=== PATIENT | male | born 1935 | race Caucasian/White ===

== ENCOUNTER 2018-02-27 09:26 | Emergency (ER) | payer MEDICARE ==
[~2018-02-27] VITALS: Ht 177.8 cm; Wt 97.0 kg
[~2018-02-27 09:26] MED LIST: AMLODIPINE10 MG PO; ATENOLOL25 MG PO; ATIVAN0.5 MG PO; BABY ASPIRIN81 MG PO; BENAZEPRIL40 M1 OR; BENAZEPRIL40 M1 PO; BRILINTA90 MG PO; CALCIUM &MAG PO; CARVEDILOL6.25 MG PO; CIPRO500 MG PO; CIPROFLOXACN500 MG PO; CLONIDINE0.1 MG PO; COQ10200 MG PO; DIP/TET TOXOID0.5 ML IM; FLORASTOR250 M1 PO; HYDROCHLOROT25 MG PO; KETOROLAC TROME0.4 % OP; LATANOPROST0.005 % OP; LOVASTATIN10 M1 PO; LYRICA50 MG PO; NORCO1 TA1 PO; PRED FORTE1 % OP; PROAIR HFA IN; REQUIP0.5 MG PO; SAW PALMETTO450 MG PO; SIMVASTATIN40 MG PO; TRAMADOL HCL50 MG PO; TYLENOL # 31 TA1 PO; ZOSTAVAX SC
[2018-02-27] MEDS ORDERED: NAPROSYN500 MG PO (11:58)
[2018-02-27 12:11] VITALS: BP 188/88
== END 2018-02-27 12:38 | disposition home or self-care (01) ==
LOC: ED 09:26
PROC: 0SSGXZZ Reposition Left Ankle Joint, External Approach (ICD-10-PCS; principal; 2018-02-27)
PROC: 2W3RX1Z Immobilization of Left Lower Leg using Splint (ICD-10-PCS; 2018-02-27)
DX: S82.432A Displaced oblique fracture of shaft of left fibula, initial encounter for closed fracture (principal); W17.89XA Other fall from one level to another, initial encounter; Y93.H9 Activity, other involving exterior property and land maintenance, building and construction; Y92.008 Other place in unspecified non-institutional (private) residence as the place of occurrence of the external cause

== ENCOUNTER 2018-08-15 08:20 | Emergency (ER) | payer MEDICARE ==
[~2018-08-15] VITALS: Ht 177.8 cm; Wt 104.0 kg
[~2018-08-15 08:20] MED LIST changes: +NAPROSYN500 MG PO
[2018-08-15] MEDS ORDERED: CARVEDILOL25 MG PO (09:09)
[2018-08-15] MEDS ORDERED: FINASTERIDE5 MG PO (09:10)
[2018-08-15] MEDS ORDERED: MAXZIDE-2537.5 MG/TA PO (09:10)
[2018-08-15] MEDS ORDERED: ASPIRIN81 MG PO (09:11)
[2018-08-15] MEDS ORDERED: PAROXETINE10 MG PO (09:11)
[2018-08-15 09:16] LABS: HEMATOCRIT 46.7 % (39.0-50.0); HEMOGLOBIN 15.7 g/dl (14.0-18.0); IMMATURE GRANULOCYTES 0.3 % (0.0-5.0); MEAN CELL VOLUME 84.3 fL CALC (80.0-100.0); MEAN CORPUSCULAR HGB 28.3 pG CALC (26.0-32.0); MEAN CORPUSCULAR HGB CONC 33.6 g/L CALC (32.0-36.0); NEUT# 4.95 thou/uL (1.82-7.42); RED BLOOD COUNT 5.54 mill/uL (4.70-6.10); RED CELL DISTRI WIDTH 13.2 % (11.5-15.5)
[2018-08-15 10:21] LABS: ANION GAP 13 (6-22 (CALC)); BUN 14 mg/dL (8-23); BUN/CREATININE RATIO 19 (12-20 (CALC)); CARBON DIOXIDE 28 mmol/l (22-30); CHLORIDE 104 mmol/l (95-108); CREATININE 0.7 mg/dL (0.7-1.3); GFR > 60 ML/MIN (>=60 (CALC)); GFR FOR AFR.AMER. > 60 ML/MIN (>=60 (CALC)); POTASSIUM 3.7 mmol/l (3.5-5.1); SODIUM 141 mmol/l (137-146)
[2018-08-15] MEDS ORDERED: MECLIZINE25 MG PO (10:41)
[2018-08-15 10:52] VITALS: BP 173/85
== END 2018-08-15 11:02 | disposition home or self-care (01) ==
LOC: ED 08:20
PROVIDERS: Family Medicine
DX: R42 Dizziness and giddiness (principal); R51 Headache; I10 Essential (primary) hypertension

== ENCOUNTER 2024-01-09 12:39 | Emergency (ER) | payer MEDICARE ==
[~2024-01-09] VITALS: Ht 177.8 cm; Wt 100.8 kg
[~2024-01-09 12:39] MED LIST changes: +ASPIRIN81 MG PO; +CARVEDILOL25 MG PO; +FINASTERIDE5 MG PO; +MAXZIDE-2537.5 MG/TA PO; +MECLIZINE25 MG PO; +PAROXETINE10 MG PO
[2024-01-09 12:47] VITALS: BP 171/74
[2024-01-09 13:15] LABS: BASO% 0.4 % (0-3); EOS% 1.6 % (0-8); HEMATOCRIT 43.5 % (39.0-50.0); HEMOGLOBIN 14.8 g/dl (14.0-18.0); IMMATURE GRANULOCYTES 0.3 % (0.0-5.0); LYMPH% 17.3 % (15-41); MEAN CELL VOLUME 84.8 fL CALC (80.0-100.0); MEAN CORPUSCULAR HGB 28.8 pG CALC (26.0-32.0); MONO% 8.6 % (2-13); NEUT# 7.62 thou/uL (1.82-7.42); NEUT% 71.8 % (42-76); RED BLOOD COUNT 5.13 mill/uL (4.70-6.10); RED CELL DISTRI WIDTH 13.2 % (11.5-15.5)
[2024-01-09 13:31] LABS: INTERNATIONAL NORMALIZED RATIO 1.1 RATIO (0.7-1.3)
[2024-01-09 13:33] LABS: ALBUMIN 4.2 g/dL (3.2-5.0); CHOLESTEROL HDL RATIO 4.9 (<4.4 (CALC)); CREATININE 0.8 mg/dL (0.7-1.3); TOTAL PROTEIN 7.7 g/dL (6.3-8.2)
[2024-01-09 13:42] LABS: PROTHROMBIN TIME 10.3 SECONDS (9.0-12.5)
[2024-01-09 13:45] LABS: BILIRUBIN, TOTAL 1.2 mg/dL (0.2-1.3); POTASSIUM 4.5 mmol/l (3.5-5.1)
[2024-01-09 13:46] VITALS: BP 167/78
[2024-01-09 13:59] LABS: URINE BILIRUBIN - DIPSTICK Negative (NEGATIVE); URINE BLOOD DIPSTICK Negative (NEGATIVE); URINE GLUCOSE - DIPSTICK Negative (NEGATIVE); URINE KETONE Negative (NEGATIVE); URINE LEUK ESTERASE Negative (NEGATIVE); URINE NITRITE - DIPSTICK Negative (Negative); URINE PROTEIN - DIPSTICK Negative (NEG-TRACE); URINE UROBILINOGEN - DIPSTICK 0.2 E.U./dL (0.2)
[2024-01-09 14:00] LABS: URINE COLOR Yellow
[2024-01-09 14:16] VITALS: BP 172/79
[2024-01-09] MEDS ORDERED: COZAAR50 MG PO (14:25)
[2024-01-09 14:31] VITALS: BP 173/76
[2024-01-09 14:47] VITALS: BP 173/76
== END 2024-01-09 14:49 | disposition left against medical advice (07) ==
LOC: ED 12:39
PROVIDERS: Family Medicine
DX: I63.9 Cerebral infarction, unspecified (principal); H53.8 Other visual disturbances; R29.701 NIHSS score 1; G93.40 Encephalopathy, unspecified; R07.9 Chest pain, unspecified; I10 Essential (primary) hypertension; I25.10 Atherosclerotic heart disease of native coronary artery without angina pectoris; G62.9 Polyneuropathy, unspecified; H91.92 Unspecified hearing loss, left ear; Z53.29 Procedure and treatment not carried out because of patient's decision for other reasons; Z95.5 Presence of coronary angioplasty implant and graft
CPT/HCPCS: Q9967